=== PATIENT | male | born 1970 | race Caucasian/White ===

== ENCOUNTER 2016-08-02 07:40 | Emergency (ER) | payer BC ==
[2016-08-02 08:12] LABS: APPEARANCE,URINE Clear (CLEAR); COLOR,URINE Yellow (YELLOW); OCCULT BLOOD,URINE Negative (NEGATIVE); PH URINE 6.5 (5.0 - 8.0); UROBILINOGEN URINE 0.2 Eu (0.2-1.0)
[2016-08-02 08:14] LABS: AMPHETAMINE NEGATIVE ng/mL (<1000); BARBITURATES NEGATIVE ng/mL (<300); CANNABINOIDS NEGATIVE ng/mL (<50); COCAINE NEGATIVE ng/mL (<150); METHAMPHETAMINE NEGATIVE ng/mL (<1000); METHYLENEDIOXYMETHAMPHETAMINE NEGATIVE ng/mL (<500)
[2016-08-02 08:20] LABS: BASOPHILS % 0.6 (0.0-1.5); EOSINOPHILS % 3.3 % (0.0-6.8); MEAN CORPUSCULAR HEMOGLOBIN 29.6 pg (28.0-34.0); MEAN CORPUSCULAR VOLUME 89.2 fl (80.0-100.0); MONOCYTES % 4.3 % (0.0-11.0); NEUTROPHILS # 5.1 # k/uL (1.4-7.7)
[2016-08-02 08:27] LABS: eGFR (African) > 60; eGFR (Non-African) > 60
--- NOTE | 2016-08-02 09:08 | ED Physician Documentation ---
General Adult - HISTORIAN Historian: patient - HPI Stated Complaint: chest/back/arm pain Chief Complaint: General Adult Onset: minutes Timing: gone now Further Comments: yes (46 year old male patient brought in via EMS. Patient states he was getting dressed this morning when he had stomach pain and back pain. Patient states "it nearly took me to my knees". Patient concerned he was having a heart attack. No PCP, has not had wellness checkup for over 7 years. Patient denies recent fall, injury or heavy lifting. States he worked 2 shifts at [employer], each 8 hours over the weekend. "more than usual".) - ROS CONST: no problems EYES/ENT: none CVS/RESP: none GI/: none MS/SKIN/LYMPH: none NEURO/PSYCH: denies: headache, fainting, dizziness, difficulty walking - PAST HX Past History: none Other History: none Surgeries/Procedures: none Allergies/Adverse Reactions: Allergies Allergy/AdvReac Type Severity Reaction Status Date / Time No Known Allergies Allergy Verified 08/02/16 07:55 Home Medications: Ambulatory Orders Medication Instructions Recorded NK [NK] 09/03/14 - SOCIAL HX Smoking History: quit greater than 1 year - FAMILY HX Family History: No - VITAL SIGNS Vital Signs: Vital Signs Temp Pulse Resp BP Pulse Ox 98.2 F 82 18 126/76 99 08/02/16 07:40 08/02/16 07:40 08/02/16 07:40 08/02/16 07:40 08/02/16 08:46 - REVIEWED ASSESSMENTS Nursing Assessment Reviewed: Yes Vitals Reviewed: Yes Progress - EKG/XRAY/CT EKG: rhythm (Rate 77, no acute changes) ED Results Lab/Radiology - Lab Results Lab Results: Lab Results 08/02/16 08/02/16 08/02/16 08:00 08:00 07:46 WBC RBC Hgb Hct MCV MCH MCHC RDW Plt Count Neut % (Auto) Lymph % (Auto) Mckenzie % (Auto) Eos % (Auto) Baso % (Auto) Neut # Lymph # Mckenzie # Eos # Baso # Reactive Lymphs % Reactive Lymphs # Sodium Potassium Chloride Carbon Dioxide BUN Creatinine Estimated Creat Clear Est GFR ( Amer) Est GFR (Non-Af Amer) Glucose Calcium Total Bilirubin AST ALT Alkaline Phosphatase Troponin I < 0.03 ng/mL L ng/mL (0.03-0.06) Total Protein Albumin Urine Color Yellow (YELLOW) Urine Appearance Clear (CLEAR) Urine pH 6.5 (5.0 - 8.0) Ur Specific Innis 1.020 (1.010-1.030) Urine Protein Negative mg/dL mg/dL (NEGATIVE) Urine Ketones Negative mg/dL mg/dL (NEGATIVE) Urine Occult Blood Negative (NEGATIVE) Urine Nitrite Negative (NEGATIVE) Urine Bilirubin Negative (NEGATIVE) Urine Urobilinogen 0.2 Eu Eu (0.2-1.0) Ur Leukocyte Esterase Negative (NEGATIVE) Urine Glucose Negative mg/dL mg/dL (NEGATIVE) Opiates Screen Negative (2000 ng/mL) Oxycodone Screen Negative ng/mL ng/mL (<100) Methadone Screen Negative ng/mL ng/mL (<300) POC Urine Barbiturates Negative ng/mL ng/mL (<300) Amphetamines Screen Negative ng/mL ng/mL (<1000) POC Ur Methamphetamine Negative ng/mL ng/mL (<1000) MDMA Negative ng/mL ng/mL (<500) Benzodiazepines Screen Negative ng/mL ng/mL (<300) Cocaine Screen Negative ng/mL ng/mL (<150) Marijuana (THC) Screen Negative ng/mL ng/mL (<50) 08/02/16 08/02/16 07:46 07:46 WBC 7.30 K/ul K/ul (4.00-12.00) RBC 5.40 M/ul H M/ul (3.90-5.20) Hgb 16.0 g/dL g/dL (12.0-18.0) Hct 48.2 % % (37.0-53.0) MCV 89.2 fl fl (80.0-100.0) MCH 29.6 pg pg (28.0-34.0) MCHC 33.2 g/dL g/dL (30.0-36.0) RDW 12.3 % % (11.3-14.3) Plt Count 189 K/mm3 K/mm3 (130-400) Neut % (Auto) 69.9 % % (39.0-79.0) Lymph % (Auto) 21.1 % % (16.0-50.0) Mckenzie % (Auto) 4.3 % % (0.0-11.0) Eos % (Auto) 3.3 % % (0.0-6.8) Baso % (Auto) 0.6 (0.0-1.5) Neut # 5.1 # k/uL # k/uL (1.4-7.7) Lymph # 1.5 # k/uL # k/uL (0.6-4.0) Mckenzie # 0.3 # k/uL # k/uL (0.0-0.9) Eos # 0.2 # k/uL # k/uL (0.0-0.6) Baso # 0.0 # k/uL # k/uL (0.0-0.5) Reactive Lymphs % 0.8 % % (0.0-5.0) Reactive Lymphs # 0.1 # k/uL # k/uL (0.0-0.8) Sodium 138 mmol/L mmol/L (136-145) Potassium 3.6 mmol/L mmol/L (3.5-5.0) Chloride 108 mmol/L mmol/L (98-110) Carbon Dioxide 30 mmol/L mmol/L (20-32) BUN 14 mg/dL mg/dL (10-26) Creatinine 1.1 mg/dL mg/dL (0.4-1.5) Estimated Creat Clear 92 Est GFR ( Amer) > 60 (60 - ) Est GFR (Non-Af Amer) > 60 (60 - ) Glucose 109 mg/dL H mg/dL (70-99) Calcium 10.0 mg/dL mg/dL (8.5-10.5) Total Bilirubin 0.7 mg/dL mg/dL (0.2-1.2) AST 35 U/L U/L (0-41) ALT 46 U/L H U/L (0-45) Alkaline Phosphatase 47 U/L U/L (46-116) Troponin I Total Protein 7.9 g/dL g/dL (6.0-8.5) Albumin 5.0 g/dL g/dL (3.0-5.5) Urine Color Urine Appearance Urine pH Ur Specific Innis Urine Protein Urine Ketones Urine Occult Blood Urine Nitrite Urine Bilirubin Urine Urobilinogen Ur Leukocyte Esterase Urine Glucose Opiates Screen Oxycodone Screen Methadone Screen POC Urine Barbiturates Amphetamines Screen POC Ur Methamphetamine MDMA Benzodiazepines Screen Cocaine Screen Marijuana (THC) Screen - Orders Orders: ED Orders Category Date Time Status Continuous Pulse Oximetry Q30M Care 08/02/16 07:46 Active CBC/PLATELET/DIFF Stat Lab 08/02/16 07:46 Completed CMP Stat Lab 08/02/16 07:46 Completed TROPONIN I (cTnI) Stat Lab 08/02/16 07:46 Completed UA W/MICRO IF INDICATED Stat Lab 08/02/16 08:00 Completed Urine drug screen [DRUG SCREEN URINE MEDICAL ONLY] Stat Lab 08/02/16 08:00 Completed EKG WITH COMPARISON Stat Ther 08/02/16 07:46 Ordered General Adult Physical Exam - PHYSICAL EXAM GENERAL APPEARANCE: [id number] N EENT: eye inspection normal, no signs of dehydration, MEGAN, no nystagmus RESPIRATORY: no resp distress, chest non-tender, breath sounds normal CVS: reg rate & rhythm, heart sounds normal, equal pulses, no murmur, no gallop , PMI nml, no JVD, no friction rub, 24 ABDOMEN: soft, no organomegaly, normal bowel sounds, no abdominal bruit, no distension BACK: normal inspection, no CVA tenderness SKIN: normal color, warm/dry, NR, INT, PAL, DR EXTREMITIES: non-tender, normal range of motion, no evidence of injury, no edema , J, [employer] NEURO: oriented X3, CN's nml as tested, motor nml, sensation nml, mood/affect nml Discharge Clincal Impression: Acute back pain Qualifiers: Back pain location: back pain in unspecified location Back pain laterality: unspecified Qualified Code(s): M54.9 - Dorsalgia, unspecified Additional Instructions: Ice Rest Elevation If you are unable to bear weight and continuing to have signficant pain on day 3 -4; see your PCP for re-evaluation and additional xrays. You may use Tylenol every 4hour as needed for pain. Limit your dose to less than 4 G per day. You may want to try massage, biofreeze, olive younger or aspercream Establish primary care and make an appointment to be seen paula. Alternate with Ibuprofen 600-800mg three times a day with food as needed. Do not take for more than 5 days in a row. Home Medications: Ambulatory Orders NK [NK] 06/09/15 Condition: Stable Disposition: 01 HOME, SELF-CARE Decision to Admit: NO Decision Time: 09:11
[2016-08-02 09:19] VITALS: BP 112/77
== END 2016-08-02 09:04 | disposition home or self-care (01) ==
LOC: ED 07:40
DX: M54.9 Dorsalgia, unspecified (principal)
CPT/HCPCS: 80053; 80377; 81002; 84484; 85025; 99283; G0481